=== PATIENT | female | born 1985 | race American Indian/Alaskan Native ===

== ENCOUNTER 2017-01-21 01:09 | Outpatient (CLI) | payer MEDICAID ==
[2017-01-21] MEDS ORDERED: LACTATED RINGERS 1,000 ML IV ONE (01:33)
[2017-01-21 01:40] VITALS: BP 103/67
[2017-01-21 02:08] LABS: Bilirubin,Urine NEG (Negative); Blood,Urine SM (Negative); Ketones,Urine NEG (Negative); Leukocyte Esterase,Urine NEG (Negative); Mucus,Urine FEW /HPF; Nitrite,Urine NEG (Negative); Protein,Urine <15 mg/dL mg/dL (Negative); Urobilinogen,Urine < 2.0 mg/dL (<2.0); WBC,Urine < 1.0 /HPF (0.0-6.0)
== END 2017-01-21 03:16 | disposition home or self-care (01) ==
LOC: TRG 01:09
PROVIDERS: ATTEND Obstetrics & Gynecology
DX: Z34.93 Encounter for supervision of normal pregnancy, unspecified, third trimester (principal); Z3A.31 31 weeks gestation of pregnancy
CPT/HCPCS: 36415; 59025; 81001; 82731; 96360; J7120

== ENCOUNTER 2017-03-12 20:40 | Inpatient (IN) | payer MEDICAID ==
[2017-03-12] MEDS ORDERED: ePHEDrine SULFATE IV PRN (21:43)
[2017-03-12] MEDS ORDERED: CERVIDIL VG ONE (21:43)
[2017-03-12] MEDS ORDERED: BRETHINE SUB-Q PRN (21:43)
[2017-03-12] MEDS ORDERED: XYLOCAINE 2% INFILTRATI ONE (21:43)
[2017-03-12] MEDS ORDERED: STADOL IV PRN (21:43)
[2017-03-12] MEDS ORDERED: ZOFRAN IV PRN (21:43)
[2017-03-12] MEDS ORDERED: PHENERGAN PO PRN (21:43)
[2017-03-12] MEDS ORDERED: MINERAL OIL PO PRN (21:43)
[2017-03-12] MEDS ORDERED: SUBLIMAZE IV PRN (21:43)
[2017-03-12] MEDS ORDERED: BRETHINE IVP PRN (21:43)
[2017-03-12] MEDS ORDERED: VANCOMYCIN/NS 1 GM/250 ML 1 GM/250 ML BAG IV SCH (22:00)
[2017-03-12] MEDS ORDERED: PITOCin/NS 20 UNIT/1000ML DRIP 20 UNITS/1,000 ML BAG IV SCH (22:00)
[2017-03-12] MEDS ORDERED: PITOCin/NS 30 UNIT/500ML 30 UNITS/500 ML BAG IV SCH ×2 (22:00)
--- NOTE | 2017-03-12 22:01 | History and Physical Report ---
History of Present Illness Date of examination: 03/12/17 Date of admission: 03/12/17 20:40 Chief complaint: This is a 31 yo at 39 weeks with hx of polyhdramnios and GDM A1. 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 denies: alcohol abuse, prescription drug abuse, IV drug use - Obstetrical History Expected Date of Delivery: 03/19/17 Actual Gestation: 39 Week(s) 0 Day(s) : 4 Para: 4 Hx # Term Pregnancies: 4 Number of Pregnancies: 0 Spontaneous Abortions: 0 Induced : 2 Number of Living Children: 3 Medications and Allergies Allergies Allergy/AdvReac Type Severity Reaction Status Date / Time Penicillins Allergy swell Verified 02/13/14 01:54 Home Medications Medication Instructions Recorded Confirmed Last Taken Type Pnv with Ca,No.72/Iron/FA 1 tab PO DAILY 01/23/14 03/01/14 03/01/14 09:00 History [ Plus Tablet] 1 tab Ferrous Sulfate [Feosol 325 MG tab] 325 mg PO TID #120 tablet 03/03/14 Unknown Rx HYDROcodone/APAP 10-325 [Aragon 1 each PO Q6HR PRN #30 tablet 03/03/14 Unknown Rx 10/325] Ibuprofen [Motrin 600 MG tab] 600 mg PO Q6HR PRN #30 tablet 03/03/14 Unknown Rx Clindamycin [Clindamycin CAP] 300 mg PO Q8H #21 cap 02/08/15 Unknown Rx HYDROcodone/APAP 10-325 [Aragon 1 each PO Q4-6H PRN #20 tablet 02/08/15 Unknown Rx 10/325] Ciprofloxacin HCl [Ciprofloxacin 500 mg PO Q12H #14 tab 02/22/15 Unknown Rx TAB] Potassium Chloride [K-Dur] 20 meq PO QDAY #5 tablet 02/22/15 Unknown Rx Promethazine [Phenergan TAB] 25 mg PO Q6HR PRN #10 tab 02/22/15 Unknown Rx Review of Systems All systems: negative - Vital Signs Vital signs: Vital Signs Pulse BP 96 H 109/59 03/12/17 21:31 03/12/17 21:31 Temp Pulse Resp BP Pulse Ox 96 H 109/59 03/12/17 21:31 03/12/17 21:31 - Physical Exam Breasts: Positive: normal Cardiovascular: Regular rate, Normal S1 Lungs: Positive: Clear to auscultation, Normal air movement Abdomen: Positive: normal appearance, soft, normal bowel sounds. Negative: distention, tenderness Genitourinary (Female): Positive: normal external genitalia, normal perenium Vulva: both: normal Vagina: Positive: normal moisture Uterus: Positive: normal size, normal contour Anus/Rectum: Positive: normal perianal skin Extremities: Positive: normal Deep Tendon Reflex Grade: Normal +2 - Obstetrical FHR: category 1 Uterine Contraction Monitor Mode: External Cervical Dilatation: 1 Cervical Effacement Percentage: 30 station: -4 Uterine Contraction Pattern: Irregular Uterine Tone Measurement Phase: Resting Uterine Contraction Intensity: Mild Results Abnormal lab results 03/12/17 Range/Units 21:49 POC Glucose 172 H (70-105) All other labs normal. Assessment and Plan A/P IUP 39 weeks , term GDM A1 Polyhydramnios IOL with cervical ripening ( cervidil) IVF , admission labs expect vaginal delivery
[2017-03-12 22:16] LABS: Hematocrit 31.2 % (30.3-42.9); Hemoglobin 10.9 gm/dl (10.1-14.3); Mean Corpuscular HGB Conc 35 % (30-34); Mean Corpuscular Hemoglobin 32 pg (28-32); Mean Corpuscular Volume 91 fl (79-97); Platelet Count 209 K/mm3 (140-440); Red Blood Count 3.43 M/mm3 (3.65-5.03); Red Cell Distribution Width 15.3 % (13.2-15.2); White Blood Count 9.2 K/mm3 (4.5-11.0)
[2017-03-12] MEDS: LACTATED RINGERS 1,000 ML IV SCH (23:06)
[2017-03-13] MEDS ORDERED: AMBIEN ONE (01:41)
[2017-03-13] MEDS ORDERED: AMBIEN PO PRN (03:42)
[2017-03-13] MEDS: LACTATED RINGERS 1,000 ML IV SCH (11:55)
--- NOTE | 2017-03-13 12:08 | Event Note ---
Date: 03/13/17 Given pt's history of polyhydramnios, ultrasound ordered to confirm presentation.Fetus noted to be oblique with umbilical cord between foot and cervix. Decision made to proceed with delivery. Anesthesia aware.
[2017-03-13] MEDS ORDERED: GARAMYCIN 80 MG in NACL 0.9% 100 ML IV SCH (12:15)
[2017-03-13] MEDS ORDERED: REGLAN IV NR (12:30)
[2017-03-13] MEDS ORDERED: BICITRA PO NR (12:30)
[2017-03-13] MEDS ORDERED: WATER FOR IRRIG STERILE IR ONE (12:30)
[2017-03-13] MEDS ORDERED: PEPCID IV NR (12:30)
[2017-03-13] MEDS ORDERED: NACL 0.9% IR ONE (12:30)
[2017-03-13] MEDS ORDERED: CLEOCIN 600 MG/50 mL 600 MG/50 ML BAG IV NR (12:30)
[2017-03-13] MEDS ORDERED: LACTATED RINGERS 1,000 ML IV SCH (12:30)
[2017-03-13] MEDS ORDERED: GARAMYCIN/NS 80 MG/100 ML 100 ML IV NR (12:30)
[2017-03-13] MEDS ORDERED: NARCAN 0.4 MG/1 ML IV PRN ×2 (12:36→17:02)
[2017-03-13] MEDS ORDERED: ZOFRAN IV PRN ×2 (12:36→17:02)
--- NOTE | 2017-03-13 12:36 | Anesthesia Consultation ---
Anesthesia Consult and Med Hx Date of service: 03/13/17 - Airway Anesthetic Teeth Evaluation: Good ROM Head & Neck: Adequate Mental/Hyoid Distance: Adequate Mallampati Class: Class II Intubation Access Assessment: Probably Good - Pre-Operative Health Status ASA Pre-Surgery Classification: ASA2 Proposed Anesthetic Plan: Epidural, Spinal - Pulmonary Hx Asthma: No COPD: No Hx Pneumonia: No - Cardiovascular System Hx Hypertension: No Hx Coronary Artery Disease: No Hx Heart Attack/AMI: No Hx Angina: No - Central Nervous System Hx Seizures: No CVA: No Hx Psychiatric Problems: No - Endocrine Hx Renal Disease: No Hx End Stage Renal Disease: No Hx Hypothyroidism: No Hx Hyperthyroidism: No - Hematic Hx Anemia: No Hx Sickle Cell Disease: No - Other Systems Hx Alcohol Use: No
--- NOTE | 2017-03-13 12:37 | Anesthesia Day of Surgery ---
Anesthesia Day of Surgery - Day of Surgery Patient Examined: Yes Patient H&P Reviewed: Yes
[2017-03-13] MEDS ORDERED: METHERGINE IM ONE (12:43)
[2017-03-13] MEDS ORDERED: MORPHINE ONE (12:44)
[2017-03-13] MEDS ORDERED: SODIUM CHLORIDE FLUSH SYRINGE 10 ML IV SCH (13:00)
[2017-03-13] MEDS: PITOCin/NS 20 UNIT/1000ML DRIP 20 UNITS/1,000 ML BAG IV SCH ×2 (13:32→15:37)
[2017-03-13] MEDS ORDERED: VERSED ONE (13:49)
[2017-03-13] MEDS ORDERED: NEO SYNEPHRINE/NS Syringe(OR USE) IV ONE (14:00)
[2017-03-13] MEDS ORDERED: XYLOCAINE MPF 2% ONE ×4 (14:02)
--- NOTE | 2017-03-13 14:17 | Procedure Note ---
OB Delivery Note - Delivery Date of Delivery: 03/13/17 Surgeon: KURTIS CARPENTER Estimated blood loss: other (800 mL) - Section Preop diagnosis: other malpresentation, other (cord in front of cervix ) Postop diagnosis: same section procedure: section, primary low transverse, bilateral tubal ligation Disposition: PACU Complications: none Narrative: Please see operative note. - Infant A at 1 minute: 8 at 5 minutes: 9 Infant Gender: Female (3412g (7lb 8oz) @1329 pm)
--- NOTE | 2017-03-13 14:20 | Operative Report ---
Operative Report Operative Report: Date of procedure: March 13, 2017 Preoperative diagnosis: 1) IUP at 39w1d 2) Oblique presentation 3) Unstable Lie4 ) Polyhydramnios 5) Undesired Fertility 6) Gestational Diabetes Postoperative diagnosis: Same Procedure: 1) Primary low transverse section 2) Bilateral tubal ligation via [place] Method Surgeon: Radha Sheriff M.D. Anesthesia: Spinal-epidural Findings: 1) Viable female , Apgars 8 and 9, weight 3412g, (7 lb 8 oz) in vertex presentation 2) Normal-appearing uterus ovaries and tubes Estimated blood loss: 800 mL IV fluids: 1000 mL Urine output:250, clear at the end of the procedure Drains: Grossman to gravity Specimens: Placenta, bilateral tubal segments to pathology Complications: None. Counts correct x 3 Disposition: Stable to PACU Indication for procedure: Pt is a 31 year old -Armenian female at 39w1d with gestational diabetes, polyhyrdramnios, and undesired fertility initially presents for induction but was found to be in oblique presentation with head to maternal left and umbilical cord overlying the cervix. The decision was made to proceed with delivery. Operation in detail: After the risks, benefits, alternatives and complications were explained to the patient she gave informed consent for the procedure. She was subsequently taken to the operating room where spinal-epidural anesthesia was noted to be adequate. She was subsequently placed in the dorsal supine position with leftward tilt and prepped and draped in a normal sterile fashion. heart tones were noted to be in the 150s prior to incision. A timeout was performed. A Pfannenstiel skin incision was made with the knife and carried down to the layer of the fascia with the Bovie. The fascia was incised in the midline and the fascial incision was extended bilaterally with the Bovie. Attention was then turned to the superior aspect of the incision which was grasped with two Kochers, tented up, and dissected off the rectus muscles. Attention was then turned to the inferior aspect of the incision which was grasped with two Kochers , tented up and dissected off the rectus muscles. The rectus muscles were then in the midline. The peritoneum was then entered bluntly. The peritoneal incision was extended with good visualization of the bladder. The peritoneal incision was then stretched. An Pablo self-retaining retractor was placed for visualization. The bladder blade was placed. The vesicouterine peritoneum was grasped with smooth pickups and incised with Metzenbaum scissors. Metzenbaum scissors were used to extend the incision bilaterally. The bladder flap was then created digitally and the bladder blade was replaced. A transverse incision was made in the lower uterine segment with a knife and extended bilaterally with the bandage scissors. The head was delivered without difficulty followed by shoulders and body. was bulb suctioned at delivery. The cord was clamped and cut and the was handed to NICU staff in attendance. Cord blood was collected. The placenta was then delivered manually. The uterus was then exteriorized and cleared of all clots and debris. The hysterotomy was then reapproximated with 0 Vicryl in a running locked fashion. A second layer of the same suture was used in imbricating fashion. Attention was then turned to the tubal ligation. The right tube was identified and followed to to the fimbriae. The tube was then grasped with a Krissy and ligated via the [place] method with 0 chromic. Attention was then turned to the left tube which in a similar fashion was followed down to the fimbriae, grasped with a [place], and ligated in via the [place] method 0 chromic. Hemostasis was noted. The hysterotomy was inspected and hemostasis was noted. The uterus was then returned to the peritoneal cavity. All instruments were removed from the abdominal cavity. The gutters were irrigated and cleared of all clots and debris. The hysterotomy was again inspected and noted to be hemostatic. Surgicel was then placed over the hysterotomy. The peritoneum was then reapproximated with 2-0 Vicryl in a running fashion. The rectus muscles were covered with Surgicel. The fascia was reapproximated with 0 Vicryl in a running fashion. The skin was closed with 4-0 Vicryl in a subcuticular fashion. The incision was then covered with steri strips and a pressure dressing. The procedure was then ended. The patient tolerated the procedure well and was taken to the PACU in stable condition. All instrument, lap, and needle counts were correct 3.
[2017-03-13] MEDS: DILAUDID IV PRN ×2 (14:47→21:47)
[2017-03-13] MEDS: TORADOL IV PRN ×2 (15:29→21:11)
[2017-03-13] MEDS ORDERED: MORPHINE IV PRN ×2 (17:02)
[2017-03-13] MEDS ORDERED: LANSINOH TP PRN (17:02)
[2017-03-13] MEDS ORDERED: SODIUM CHLORIDE FLUSH SYRINGE 10 ML IV NR (17:02)
[2017-03-13] MEDS ORDERED: MYLICON PO PRN (17:02)
[2017-03-13] MEDS ORDERED: PITOCin/NS 20 UNIT/1000ML DRIP 20 UNITS/1,000 ML BAG IV SCH (17:02)
[2017-03-13] MEDS ORDERED: TYLENOL PO PRN (17:02)
[2017-03-13] MEDS ORDERED: TUCKS PAD TP PRN (17:02)
[2017-03-13] MEDS ORDERED: D5LR 1,000 ML IV SCH (17:02)
[2017-03-13] MEDS: ANCEF/NS 1 GM/50 ML 1 GM/50 ML BAG IV SCH (20:04)
[2017-03-14] MEDS: BENADRYL IV PRN (00:03)
[2017-03-14] MEDS: PERCOCET 5/325 PO PRN ×4 (03:27→18:46)
[2017-03-14] MEDS: ANCEF/NS 1 GM/50 ML 1 GM/50 ML BAG IV SCH (03:31)
[2017-03-14 06:31] LABS: Hemoglobin 7.3 gm/dl (10.1-14.3)
--- NOTE | 2017-03-14 08:33 | Ultrasound Report ---
OB ULTRASOUND History: Polyhydramnios. Technique: Transabdominal ultrasound with Doppler interrogation. Gestation: Single Position: Transverse, head to maternal left Amniotic Fluid: Increased KANDACE = 28.8 cm Placenta: Anterior Placental Grade: 1 Heart Rate: 134 BPM BPD: 9.9 cm = 40 w 6 d HC: 34.9 cm = 40 w 4 d AC: 37.8 cm = 41 w 5 d FL: 7.8 cm = 40 w 0 d HC/AC Ratio: 0.90 Cephalic Index: 88.2 Estimated Weight: 4307 grams. 97th percentile. LMP: 06/12/16 Clinical age = 39 w 1 d EDC: 03/19/17 US Gest. Age = 40 w 6 d EDC: 03/07/17 IMPRESSION: Polyhydramnios.
[2017-03-14] MEDS: PRENATAL VITAMIN PO SCH (08:34)
[2017-03-14] MEDS: MOTRIN PO PRN ×2 (08:35→18:45)
--- NOTE | 2017-03-14 08:49 | Progress Note ---
Assessment and Plan A: POD#1 s/p primary section with tubal ligation, Anemia P: Monitor for symptomatic anemia. Encourage ambulation. Bowel regimen. Abdominal binder. Continue to monitor clinically. Subjective - Subjective Date of service: 03/14/17 Principal diagnosis: s/p primary at ter, GDM Interval history: Pt c/o dizziness when she tried to ambulate alone last night. She has voided. + small amount of flatus. No nausea. Patient reports: voiding normally, pain well controlled, flatus, no ambulating normally, no nauseated [place]: doing well Objective - Vital Signs Latest vital signs: Vital Signs Temp Pulse Resp BP BP Pulse Ox 03/14/17 04:50 99 F 72 18 105/66 03/14/17 03:27 20 03/14/17 01:00 97.5 F L 68 18 98/57 03/13/17 21:47 20 03/13/17 21:11 20 03/13/17 20:39 99 F 71 22 111/59 03/13/17 17:25 20 03/13/17 15:55 98.4 F 80 20 128/70 03/13/17 15:35 92 H 17 128/79 100 03/13/17 15:34 97.6 F 03/13/17 15:30 91 H 13 120/72 100 03/13/17 15:25 85 22 118/72 99 03/13/17 15:20 94 H 19 123/75 99 03/13/17 15:15 89 26 H 112/69 99 03/13/17 15:10 87 21 114/76 99 03/13/17 15:05 85 23 114/69 99 03/13/17 15:00 86 17 115/67 100 03/13/17 14:55 88 24 118/61 99 03/13/17 14:50 91 H 17 118/52 100 03/13/17 14:45 101 H 17 53/30 100 03/13/17 14:41 102 H 20 121/72 100 03/13/17 14:35 104 H 20 100 03/13/17 14:34 104 H 03/13/17 14:28 98.5 F 03/13/17 12:26 98.5 F 03/13/17 12:01 99 H 120/73 03/13/17 10:06 93 H 85/44 Intake and Output 03/13/17 03/14/17 03/14/17 22:59 06:59 14:59 Intake Total 1430 240 Output Total 175 1050 Balance 1255 -810 Intake: IV 1250 ANCEF/NS 1 GM/50 ML 1 gm 50 In 50 ml @ 100 mls/hr IV Q8H FERNANDEZ Rx#:[id number] PITOCin/NS 20 UNIT/1000ML 1000 DRIP 20 units In 1,000 ml @ As Directed IV TITR FERNANDEZ Rx#:[id number] Oral 180 240 Output: Urine 175 1050 Indwelling Catheter 175 800 Void 250 Other: Total, Intake Amount 180 240 Total, Output Amount 175 250 # Voids Void 1 - Exam Breasts: Present: deferred Cardiovascular: Present: Regular rate Lungs: Present: Clear to auscultation Abdomen: Present: soft, distention (moderate), abnormal bowel sounds ( hypoactive ) Uterus: Present: fundal height at umbilicus Extremities: Present: normal Incision: Present: dressed - Labs Labs: Abnormal lab results 03/13/17 03/14/17 Range/Units 12:01 05:41 Hgb 7.3 L D (10.1-14.3) gm/dl Hct 22.0 L D (30.3-42.9) % POC Glucose 68 L (70-105)
[2017-03-14] MEDS ORDERED: FEOSOL PO SCH (10:00)
[2017-03-14] MEDS: FEOSOL PO SCH ×2 (11:00→21:13)
[2017-03-14] MEDS ORDERED: MILK OF MAGNESIA PO SCH (12:00)
[2017-03-14] MEDS: MILK OF MAGNESIA PO SCH (12:29)
[2017-03-14] MEDS ORDERED: BOOSTRIX IM ONE (14:25)
[2017-03-14] MEDS ORDERED: M-M-R II VACCINE SUB-Q ONE (14:25)
[2017-03-14 15:15] LABS: Hemoglobin 6.4 gm/dl (10.1-14.3)
[2017-03-14 15:18] LABS: Hematocrit 19.3 % (30.3-42.9)
[2017-03-14] MEDS ORDERED: NACL 0.9% 500 ML 500 ML IV SCH (17:40)
--- NOTE | 2017-03-14 17:40 | Event Note ---
Date: 03/14/17 Called by RN secondary to pt feeling very fatigued and repeat hemoglobin and hematocrit are 6.4 and 19.3 respectively. Plan to transfuse 2 units of PRBCs with hemoglobin and hematocrit 4 hours after transfusion of the last unit.
--- NOTE | 2017-03-14 19:07 | Event Note ---
Date: 03/14/17 Pt refusing blood transfusion. Continue oral iron repletion.
[2017-03-14] MEDS ORDERED: BENADRYL PO ONE (21:15)
[2017-03-15] MEDS: MILK OF MAGNESIA PO SCH ×2 (03:43→17:39)
[2017-03-15] MEDS: BENADRYL IV PRN (04:02)
[2017-03-15 06:41] LABS: Hematocrit 21.7 % (30.3-42.9); Hemoglobin 7.6 gm/dl (10.1-14.3)
--- NOTE | 2017-03-15 06:58 | Event Note ---
Date: 03/15/17 Late entry. At 2031pm, paged by pt's nurse that she does want to proceed with transfusion. Plan to transfuse 2 units as initially planned.
--- NOTE | 2017-03-15 08:30 | Progress Note ---
Assessment and Plan POD#2 s/p c/s and BTL s/p blood ttransfusion await Post infusion h/h PP depression crying and hx of depression psych consult post op order will reevlauate at 12noon mag citrate for bowels Subjective - Subjective Date of service: 03/15/17 Principal diagnosis: s/p primary at ter, GDM Patient reports: pain poorly controlled, no flatus, no bowel movement : doing well Objective - Vital Signs Latest vital signs: Vital Signs Temp Pulse Resp BP BP Pulse Ox 03/15/17 01:10 98.0 F 108 H 18 115/67 03/15/17 00:40 98.5 F 111 H 18 110/67 03/15/17 00:10 98.4 F 102 H 16 113/57 99 03/15/17 00:07 98.7 F 106 H 16 113/70 03/14/17 23:40 98.6 F 105 H 16 117/63 03/14/17 23:10 98.5 F 105 H 18 107/56 03/14/17 22:40 98.6 F 105 H 18 105/54 03/14/17 22:13 98.6 F 111 H 18 121/69 03/14/17 16:26 98.4 F 84 20 106/54 03/14/17 12:26 98.5 F 80 20 102/50 Intake and Output 03/14/17 03/15/17 03/15/17 22:59 06:59 14:59 Intake Total 240 740 Balance 240 740 Intake: Oral 240 240 Blood Product 0 500 Leukoreduced Rbc Part 2 250 Unit [id number] Leukoreduced Red Blood 0 250 Cells Unit [id number] Other: Total, Intake Amount 240 240 # Voids Void 1 - Exam Breasts: Present: normal Cardiovascular: Present: Regular rate, Normal S1 Lungs: Present: Clear to auscultation, Normal air movement Abdomen: Present: normal appearance, soft, normal bowel sounds. Absent: distention, tenderness Vulva: both: normal Uterus: Present: normal, firm, fundal height below umbilicus. Absent: bogginess Extremities: Present: normal Deep Tendon Reflex Grade: Normal +2 Incision: Present: normal, dry, intact - Labs Labs: Abnormal lab results 03/12/17 03/14/17 03/15/17 Range/Units 20:10 14:41 06:12 Hgb 6.4 L 7.6 L (10.1-14.3) gm/dl Hct 19.3 L* 21.7 L (30.3-42.9) % Crossmatch See Detail
[2017-03-15] MEDS: PERCOCET 5/325 PO PRN ×4 (08:37→21:42)
[2017-03-15] MEDS: FEOSOL PO SCH ×2 (08:38→21:42)
[2017-03-15] MEDS: PRENATAL VITAMIN PO SCH (08:39)
--- NOTE | 2017-03-15 09:05 | Query-Anemia ---
Dear ____Radha Sheriff Date:____03/15/17 Internet Marketing Strategist/CDS:__Eliceo Pierre / Wendymaria e Phone#:__[phone] Exercise your independent professional judgment when responding to this query. Questions asked do not imply a particular answer is desired or expected. We greatly appreciate your clarification on this issue. Clinical Documentation States: A 31 yo at 39 weeks with hx of polyhydramnios and GDM A1 admitted for labor and delivery for IOL. "Operative Report: Pre-operative diagnosis: 1) IUP at 39w1d 2) Oblique presentation 3) Unstable Lie 4) Polyhydramnios 5) Undesired Fertility 6) Gestational Diabetes Procedure: 1) Primary low transverse section; 2) Bilateral tubal ligation via [place] method. Estimated Blood Loss: 800 mL" ( OP note by RADHA SHERIFF MD, on 03/13/17) "Assessment: POD#1 s/p primary section with tubal ligation, Anemia" ( P /N by RADHA SHERIFF MD, on 03/14/17) Clinical Findings Show: 03/12 03/14 03/14 Hb - 10.9 7.3 6.4 Hct - 31.2 22.0 19.3 Treatment: Leukocyte-reduced RBC Iron Supplements Vitamin Supplements Etiology: [ X] Anemia due to acute blood loss [ ] Anemia due to chronic blood loss [ ] Anemia secondary to ESRD [ ] Anemia secondary to neoplastic disease [ ] Iron deficiency anemia due to malabsorption [ ] GI Bleed from: [ ] Anemia of chronic disease ,Other: [ X] Precipitous Drop in Hemoglobin [X ] Precipitous Drop in Hematocrit [ ] Other: [ ] Unable to determine [ ] Comment/Explanation: Present on Admission: [ ] Yes (Y) [ ] Clinically undeterminable (W) [ ] No (N) Please also document response in your Progress Notes and/or Discharge Summary and indicate if the condition was present on admission. MTDD
[2017-03-15] MEDS ORDERED: CITRATE OF MAGNESIA PO ONE (10:00)
[2017-03-15] MEDS: MOTRIN PO PRN (11:58)
[2017-03-15] MEDS ORDERED: ZOLOFT PO SCH (15:00)
[2017-03-16] MEDS: PERCOCET 5/325 PO PRN ×3 (02:30→18:18)
[2017-03-16] MEDS ORDERED: BOOSTRIX IM ONE (06:00)
[2017-03-16] MEDS: MILK OF MAGNESIA PO SCH ×2 (06:30→06:31)
--- NOTE | 2017-03-16 08:17 | Progress Note ---
Assessment and Plan - Patient Problems (1) delivery delivered Current Visit: Yes Status: Acute Plan to address problem: Discharged home (2) depression Current Visit: Yes Status: Acute Plan to address problem: Discharged home with Zoloft with early follow-up Subjective - Subjective Date of service: 03/16/17 Principal diagnosis: s/p primary at ter, GDM Interval history: Patient experienced improvement in her symptoms. She is tolerating a regular diet. She is having routine postoperative discomfort. Patient reports: appetite normal, voiding normally, pain well controlled, flatus : doing well Objective - Vital Signs Latest vital signs: Vital Signs Temp Pulse Resp BP 03/16/17 06:29 20 03/16/17 02:30 20 03/16/17 00:30 98.6 F 77 16 102/69 03/15/17 21:42 03/15/17 16:15 98.6 F 90 20 110/80 03/15/17 08:17 99.3 F 68 18 118/68 Intake and Output 03/15/17 03/16/17 03/16/17 22:59 06:59 14:59 Intake Total 360 500 Output Total 1 Balance 359 500 Intake: Oral 360 200 Intake, Free Water 300 Output: Stool 1 Other: Total, Intake Amount 200 Voiding Method Toilet # Voids 1 - Exam Abdomen: Present: normal appearance, soft Uterus: Present: normal, firm Incision: Present: normal
--- NOTE | 2017-03-16 08:19 | Discharge Summary ---
Providers - Providers Date of Admission: 03/12/17 20:40 Date of discharge: 03/16/17 Attending physician: MAYTE GAITAN MD 03/13/17 17:02 Consult to Tile Sprayer [CONS] Routine Reason For Exam: 03/15/17 07:12 psychiatry consult [Consult to Mental Health] [CONS] Routine Reason For Exam: s/p , severe anxiety, h/o depression Place consult to:: [facility] Notified:: [facility] Phone number called:: [phone] Was contact made?: Yes If yes, spoke with:: JOCY Time called:: 08:50 Comment:: STATED THAT SHE WILL FAX OVER PAPER WORK 03/15/17 08:19 Consult to Physician [CONS] Urgent Consulting Provider: Reason For Exam: Hx of depression , anxious Place consult to:: psychiatry Notified:: psych Phone number called:: [phone] Was contact made?: No If yes, spoke with:: JOCY Time called:: 08:50 Comment:: SHE STATED SHE WILL FAX OVER PAPER WORK Primary care physician: MAYTE GAITAN MD Hospitalization Reason for admission: induction of labor, IUP at term Delivery: Procedure: section, primary low transverse Incision: normal Discharge diagnosis: IUP at term delivered baby: female Hospital course: The patient was admitted for induction of labor secondary to gestational diabetes. Her intrapartum course was complicated by unstable lie and the patient underwent a primary delivery. Her course was complicated by symptoms of depression. Condition at discharge: Good Disposition: DC-01 TO HOME OR SELFCARE - Discharge Diagnoses (1) delivery delivered Status: Acute (2) depression Status: Acute Plan - Discharge Medications Prescriptions: Docusate Sodium [Colace] 100 mg PO BID PRN #60 capsule PRN Reason: Constipation Ferrous Sulfate [Feosol 325 MG tab] 325 mg PO TID #90 tablet Ibuprofen [Motrin] 800 mg PO Q8HR PRN #30 tablet PRN Reason: Pain oxyCODONE /ACETAMINOPHEN [Percocet 5/325] 1 tab PO Q6HR PRN #40 tablet PRN Reason: Pain Sertraline [Zoloft] 100 mg PO QDAY #30 tablet - Provider Discharge Summary Activity: no sex for 6 weeks, no heavy lifting 4 weeks, no strenuous exercise Diet: routine Instructions: routine Additional instructions: [] Smoking cessation referral if applicable(refer to patient education folder for contact #) [] Refer to [facility] Booklet Call your doctor immediately for: * Fever > 100.5 * Heavy vaginal bleeding ( >1 pad per hour) * Severe persistent headache * Shortness of breath * Reddened, hot, painful area to leg or breast * Drainage or odor from incision. * Keep incision clean and dry at all times and follow doctor's instructions regarding bathing/showering Follow-up in one week at [facility] [facility] - Follow up plan
[2017-03-16] MEDS: MOTRIN PO PRN ×2 (11:51→18:20)
[2017-03-16] MEDS: FEOSOL PO SCH (11:53)
[2017-03-16] MEDS: PRENATAL VITAMIN PO SCH (11:55)
[2017-03-16 19:32] VITALS: BP 120/76
--- NOTE | 2017-03-16 19:43 | Consultation ---
History of Present Illness - Reason for Consult Consult date: 03/16/17 Reason for consult: psychiatric evaluation - Chief Complaint Chief complaint: 31 year old female seen for psychiatric evaluation. She had a delivery. The consult was placed for concerns with anxiety and depression. She was initially resistant to an interview. She expressed concern about mental health treatment being used against her to take her children. She later acknowledged depression and worry about something happening to her . In 2005, her of SIDS. She has a 3 year old at home and the father of her children. Their relationship is strained at this time. He is an amputee and in a wheelchair. She has minimal family support. She was adopted, and her adoptive mother is . She reports financial stress as well. She denies suicidal or homicidal ideation. She denies psychotic symptoms. She is attentive to her and holds her and kissed her during the interview. She is interested in counseling. She would like to continue the zoloft through the OB/ brass roller. Medications and Allergies Allergies Allergy/AdvReac Type Severity Reaction Status Date / Time Penicillins Allergy swell Verified 02/13/14 01:54 Home Medications Medication Instructions Recorded Confirmed Last Taken Type Pnv with Ca,No.72/Iron/FA 1 tab PO DAILY 01/23/14 03/13/17 03/01/14 09:00 History [ Plus Tablet] 1 tab Ferrous Sulfate [Feosol 325 MG tab] 325 mg PO TID #120 tablet 03/03/14 03/13/17 Unknown Rx HYDROcodone/APAP 10-325 [Anson 1 each PO Q6HR PRN #30 tablet 03/03/14 03/13/17 Unknown Rx 10/325] Ibuprofen [Motrin 600 MG tab] 600 mg PO Q6HR PRN #30 tablet 03/03/14 03/13/17 Unknown Rx Clindamycin [Clindamycin CAP] 300 mg PO Q8H #21 cap 02/08/15 03/13/17 Unknown Rx HYDROcodone/APAP 10-325 [Anson 1 each PO Q4-6H PRN #20 tablet 02/08/15 03/13/17 Unknown Rx 10/325] Ciprofloxacin HCl [Ciprofloxacin 500 mg PO Q12H #14 tab 02/22/15 03/13/17 Unknown Rx TAB] Potassium Chloride [K-Dur] 20 meq PO QDAY #5 tablet 02/22/15 03/13/17 Unknown Rx Promethazine [Phenergan TAB] 25 mg PO Q6HR PRN #10 tab 02/22/15 03/13/17 Unknown Rx Docusate Sodium [Colace] 100 mg PO BID PRN #60 capsule 03/14/17 Unknown Rx Ferrous Sulfate [Feosol 325 MG tab] 325 mg PO TID #90 tablet 03/14/17 Unknown Rx Ibuprofen [Motrin] 800 mg PO Q8HR PRN #30 tablet 03/14/17 Unknown Rx oxyCODONE /ACETAMINOPHEN [Percocet 1 tab PO Q6HR PRN #40 tablet 03/14/17 Unknown Rx 5/325] Sertraline [Zoloft] 100 mg PO QDAY #30 tablet 03/16/17 Unknown Rx Active Meds: Active Medications Acetaminophen (Tylenol) 650 mg PO Q4H PRN PRN Reason: Fever >100.5/MA Last Admin: 03/14/17 21:13 Dose: 650 mg Diphenhydramine HCl (Benadryl) 12.5 mg IV Q2H PRN PRN Reason: Itching Last Admin: 03/15/17 04:02 Dose: 12.5 mg Ferrous Sulfate (Feosol) 325 mg PO BID FERNANDEZ Last Admin: 03/16/17 11:53 Dose: 325 mg Hydromorphone HCl (Dilaudid) 0.5 mg IV Q4H PRN PRN Reason: breakthrough pain > 7/10 Last Admin: 03/13/17 21:47 Dose: 0.5 mg Oxytocin/Sodium Chloride (Pitocin/Ns 20 Unit/1000ml Drip) 20 units in 1,000 mls @ 0 mls/hr IV TITR FERNANDEZ PRN Reason: As Directed Last Admin: 03/13/17 15:37 Dose: 250 mls/hr Dextrose/Lactated Ringer's (D5lr) 1,000 mls @ 125 mls/hr IV DIRECT FERNANDEZ Last Admin: 03/14/17 00:02 Dose: 125 mls/hr Oxytocin/Sodium Chloride (Pitocin/Ns 20 Unit/1000ml Drip) 20 units in 1,000 mls @ 250 mls/hr IV DIRECT FERNANDEZ Ibuprofen (Motrin) 800 mg PO Q6H PRN PRN Reason: Pain, Mild (1-3) Last Admin: 03/16/17 18:20 Dose: 800 mg Ketorolac Tromethamine (Toradol) 30 mg IV Q6H PRN PRN Reason: Pain, Moderate (4-6) Stop: 03/18/17 12:36 Last Admin: 03/13/17 21:11 Dose: 30 mg Magnesium Hydroxide (Milk Of Magnesia) 30 ml PO Q6H [facility] Last Admin: 03/16/17 06:31 Dose: 30 ml Morphine Sulfate (Morphine) 2 mg IV Q4H PRN PRN Reason: Pain, Moderate (4-6) Morphine Sulfate (Morphine) 4 mg IV Q4H PRN PRN Reason: Pain , Severe (7-10) Last Admin: 03/13/17 17:25 Dose: 4 mg Multi-Ingredient Ointment (Lansinoh) 1 applic TP PRN PRN PRN Reason: dryness/cracking Last Admin: 03/16/17 11:52 Dose: 1 applic Multivitamins/Iron/Calcium ( Vitamin) 1 each PO QDAY [facility] Last Admin: 03/16/17 11:55 Dose: 1 each Naloxone HCl (Narcan 0.4 Mg/1 Ml) 0.1 mg IV Q2MIN PRN PRN Reason: Res Rate </= 8 or 02 SAT < 92% Ondansetron HCl (Zofran) 4 mg IV Q8H PRN PRN Reason: Nausea And Vomiting Oxycodone/Acetaminophen (Percocet 5/325) 2 tab PO Q4H PRN PRN Reason: Pain, Moderate (4-6) Last Admin: 03/16/17 18:18 Dose: 2 tab Sertraline HCl (Zoloft) 50 mg PO QDAY [facility] Last Admin: 03/15/17 16:04 Dose: 50 mg Simethicone (Mylicon) 80 mg PO Q6H PRN PRN Reason: Gas pain Last Admin: 03/15/17 03:42 Dose: 80 mg Sodium Chloride (Sodium Chloride Flush Syringe 10 Ml) 10 ml IV PRN [facility] Witch Anna/Glycerin (Tucks Pad) 1 each TP PRN PRN PRN Reason: Hemorrhoids/cleansing/soothing Past psychiatric history - Past Medical History Past Surgical History: - past Psychiatric treatment and history psychiatric treatment history: denied - Social History Social history: lives with family, other (no alcohol or illicit substance use reported) Mental Status Exam - Vital signs Last Vital Signs Temp 98.7 F 03/16/17 09:56 Pulse 96 H 03/16/17 09:56 Resp 20 03/16/17 09:56 BP 118/70 03/16/17 09:56 Pulse Ox 99 03/16/17 09:56 - Exam Orientation: time, place, person Affect: depressed, anxious Mood: congruent with affect Thought content: other (no SI/HI) Thought Process: Intact Perceptions: none Speech: normal rate and pattern Concentration: focused Motor activity: normal Level of consciousness: alert Memory: Intact Interaction: cooperative Results Result Diagrams: 03/15/17 06:12 All other labs normal. Assessment and Plan Assessment and plan: Impression: major depressive disorder, moderate anxiety disorder, unspecified No acute safety concerns were identified. No suicidal or homicidal ideation. Evidence of bonding present. Recommendations: Referrals to individual counseling services. She was informed of the role of a psychiatrist. She declines referrals to a psychiatrist. Continue zoloft for anxiety and depression per gravity manager.
== END 2017-03-16 18:45 | disposition home or self-care (01) | DRG 765 ==
LOC: LD 20:40 → OB 03-13 16:34
PROVIDERS: ADMIT Obstetrics & Gynecology; ATTEND Obstetrics & Gynecology
PROC: 10D00Z1 Extraction of Products of Conception, Low, Open Approach (ICD-10-PCS; principal; 2017-03-13)
PROC: 0UB70ZZ Excision of Bilateral Fallopian Tubes, Open Approach (ICD-10-PCS; 2017-03-13)
PROC: 30233N1 Transfusion of Nonautologous Red Blood Cells into Peripheral Vein, Percutaneous Approach (ICD-10-PCS; 2017-03-13)
PROC: 3E0234Z Introduction of Serum, Toxoid and Vaccine into Muscle, Percutaneous Approach (ICD-10-PCS; 2017-03-13)
DX: O40.3XX0 Polyhydramnios, third trimester, not applicable or unspecified (principal); D62 Acute posthemorrhagic anemia; O32.2XX0 Maternal care for transverse and oblique lie, not applicable or unspecified; O32.0XX0 Maternal care for unstable lie, not applicable or unspecified; O24.429 Gestational diabetes mellitus in childbirth, unspecified control; O99.62 Diseases of the digestive system complicating childbirth; K21.9 Gastro-esophageal reflux disease without esophagitis; O99.334 Smoking (tobacco) complicating childbirth; F17.200 Nicotine dependence, unspecified, uncomplicated; O99.03 Anemia complicating the puerperium; F53 Mental and behavioral disorders associated with the puerperium, not elsewhere classified; F41.9 Anxiety disorder, unspecified; O99.345 Other mental disorders complicating the puerperium; Z3A.39 39 weeks gestation of pregnancy; Z37.0 Single live birth; Z30.2 Encounter for sterilization; Z88.0 Allergy status to penicillin; Z83.3 Family history of diabetes mellitus; Z82.49 Family history of ischemic heart disease and other diseases of the circulatory system; Z80.9 Family history of malignant neoplasm, unspecified; Z23 Encounter for immunization; O75.89 Other specified complications of labor and delivery; O99.02 Anemia complicating childbirth; D57.3 Sickle-cell trait
CPT/HCPCS: 36415; 59200; 76816; 82962; 85014; 85018; 85027; 86592; 86850; 86900; 86901; 86920; 88302; 88307; 90471; 90715; 99211; A6250; G0463; J0690; J1170; J1200; J1580; J1885; J2210; J2250; J2270; J2370; J2405; J2590; J2765; J3370; J7040; J7120; J7121; P9016

== ENCOUNTER 2019-07-22 16:09 | Emergency (ER) | payer MEDICAID ==
--- NOTE | 2019-07-22 17:06 | Emergency Department Report ---
Chief Complaint: Upper Respiratory Infection Stated Complaint: FLU Time Seen by Provider: 07/22/19 17:05 - HPI History of Present Illness: SEVERAL DAY HX OF FLU LIKE SYMPTOMS HERE WITH FAMILY - ROS Review of Systems: FEVER MYALGIA - Exam Vital Signs: VSS NOTED MANUALLY RECORDED BY RN Physical Exam: ALERT ORIENTED NO FOCAL DEF S1S2 LUNGS CTA AMBULATORY TAKING PO MSE screening note: Focused history and physical exam performed. Due to findings the following was ordered: Patient discussed with doctor:: [facility] ED Disposition for MSE Condition: Stable
== END 2019-07-22 18:50 | disposition left against medical advice (07) ==
LOC: ED 16:09
DX: R50.9 Fever, unspecified (principal)
CPT/HCPCS: 99281